=== PATIENT | female | born 1975 | race Caucasian/White ===

== ENCOUNTER 2019-08-05 17:58 | Emergency (ER) | payer OTHER ==
[~2019-08-05] VITALS: Ht 152.4 cm; Wt 57.6 kg
== END 2019-08-05 21:20 | disposition home or self-care (01) ==
LOC: ER 17:58
DX: R07.89 Other chest pain (principal)

== ENCOUNTER 2020-05-28 08:51 | Outpatient (CLI) | payer OTHER | END 2020-05-28 09:15 | disposition home or self-care (01) | LOC: SONOGRAMA 08:51 → MAMO-SONO 09:00 → SONOGRAMA 09:15 | PROVIDERS: ATTEND Obstetrics & Gynecology Gynecology | DX: N92.0 Excessive and frequent menstruation with regular cycle (principal); N84.0 Polyp of corpus uteri ==